=== PATIENT | male | born 1985 | race Caucasian/White ===

== ENCOUNTER 2017-03-24 21:12 | Emergency (ER) | payer OTHER ==
[2017-03-24 21:27] VITALS: BP 137/82
[2017-03-24] MEDS ORDERED: DIPHTH,PERTUSS(ACELL),TET VAC 0.5 ML VIAL IM ONE ×2 (21:38→21:40)
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
== END 2017-03-24 21:50 | disposition home or self-care (01) ==
LOC: ER 21:12
DX: S31.801A Laceration without foreign body of unspecified buttock, initial encounter (principal); Z23 Encounter for immunization; Z53.29 Procedure and treatment not carried out because of patient's decision for other reasons